=== PATIENT | female | born 1955 | race Caucasian/White ===

== ENCOUNTER 2023-05-24 10:35 | Outpatient (CLI) | payer MEDICARE, SELFPAY ==
[2023-05-24 11:56] LABS: Absolute Lymphocyte Count 2.12 X10^3/uL (0.83-4.51); Absolute Neutrophil Count 3.9 X10^3/uL (2.0-7.7); Basophil# 0.04 X10^3/uL; Basophil% 0.6 % (0-1); Eosinophil# 0.16 X10^3/uL; Eosinophils% 2.4 % (0-5); Hematocrit 41.5 % (37-47); Hemoglobin 13.3 g/dL (12.0-15.0); Lymphocyte # 2.12 X10^3/ul (0.83-4.51); Lymphocyte % 32.3 % (19-41); Mean Corpuscular Volume 90.6 fL (81-99); Mean Platelet Vol. 9.9 fl (6.2-12.0); Monocyte# 0.32 X10^3/uL; Monocyte% 4.9 % (0-10); NRBC Flagged by Analyzer 0 % (0-5); Neutrophil % 59.5 % (47-70); Platelet Count 270 K/mm3 (150-450); RBC Distribution Width CV 13.2 % (11.6-14.6); RBC Distribution Width SD 43.3 fl (35.1-43.9); Red Blood Count 4.58 M/mm3 (4.2-5.4); White Blood Count 6.6 K/mm3 (4.4-11.0)
[2023-05-24 12:03] LABS: Erythrocyte Sedimentation Rate 17 mm/hr (0-30)
[2023-05-24 12:12] LABS: Hemoglobin A1c 5.8 % (3.8-5.6)
[2023-05-24 12:26] LABS: ALB/GLOB Ratio 1.1 RATIO (0.9-2.4); AST(SGOT) 20 U/L (15-37); Alanine Aminotransfer ALT/SGPT 32 U/L (13-56); Albumin, Serum 3.6 g/dL (3.2-5.0); Alkaline Phosphatase 85 U/L (45-117); Anion Gap 5 (5-15); BUN 20 mg/dL (7-18); BUN/Creat Ratio 25.8 RATIO (10-20); CPK Total, Creatine Kinase 59 U/L (26-192); CRP < 2.90 mg/L (0.0-3.0); Calcium,Total 9.7 mg/dL (8.5-10.1); Chloride 105 mmol/L (98-107); Cholesterol 234 mg/dL (200); Creatinine, Serum 0.78 mg/dL (0.55-1.02); EST Glomerular Filtration Rate 78 mL/min (>60); Est Glom Filt Rate - Afr Amer 95 mL/min (>60); Free T3 2.7 pg/mL (2.18-3.98); Globulin 3.4 g/dL (2.2-4.2); Glucose 104 mg/dL (74-106); High Density Lipoprotein 81 mg/dL; Potassium 3.9 mmol/L (3.5-5.1); Rheumatoid Factor < 10.0 IU/mL (<15); Sodium Level 138 mmol/L (136-145); T4 Free Direct 0.99 ng/dL (0.76-1.46); Thyroid Stim Hormone (TSH) 1.43 uIU/mL (0.358-3.74); Triglycerides 100 mg/dL; Uric Acid 3.7 mg/dL (2.6-6.0); Very Low Density Lipoprotein 20 mg/dL (5-40)
[2023-05-24 12:46] LABS: Hepatitis B Surface Antibody Non-Reactive; Hepatitis B Surface Antigen Non-Reactive (Nonreactive); Vitamin B12 922 pg/mL (211-911); Vitamin D,25 Hydroxy 61.5 ng/mL
[2023-05-25 12:09] LABS: ANTINUCLEAR ANTIBODIES DIRECT Negative (Negative)
[2023-05-25 16:10] LABS: Aldolase 3.9 U/L (3.3-10.3); CCP IgG Antibodies 8 units (0-19); Hepatitis B Core Ab Total Negative (Negative)
== END 2023-05-24 23:59 | disposition home or self-care (01) ==
PROVIDERS: PCP Family Medicine; Referring Provider Internal Medicine Rheumatology; Visit Provider Internal Medicine Rheumatology
DX: K44.9 Diaphragmatic hernia without obstruction or gangrene (principal); M60.9 Myositis, unspecified; R23.3 Spontaneous ecchymoses; M54.50 Low back pain, unspecified; K76.0 Fatty (change of) liver, not elsewhere classified; M25.50 Pain in unspecified joint; M70.62 Trochanteric bursitis, left hip; Z85.820 Personal history of malignant melanoma of skin; G89.29 Other chronic pain; M72.2 Plantar fascial fibromatosis
CPT/HCPCS: 36415; 80053; 80061; 82085; 82306; 82550; 82607; 83036; 84439; 84443; 84481; 84550; 85025; 85652; 86038; 86140; 86200; 86225; 86235; 86431; 86704; 86706; 86803; 86804; 87340